=== PATIENT | female | born 1965 | race Caucasian/White ===

== ENCOUNTER 2019-11-03 15:05 | Outpatient (CLI) | payer OTHER ==
--- NOTE | 2019-11-03 16:25 | BD ---
Exam: DEXA Bone Density 11/03/19 HISTORY: Postmenopausal screening for osteoporosis. Lumbar Spine: BMD (g/cm2) T-SCORE Z-SCORE L1 0.852 -1.3 -0.4 L2 0.916 -1.0 -0.1 L3 0.939 -1.3 -0.4 L4 0.933 -1.2 -0.2 L1-L4 0.911 -1.2 -0.3 Femoral Neck: 0.828 -0.2 0.7 Total Femur: 0.928 -1.0 0.5 The ten year fracture risk for major osteoporotic fracture is 8.3% and for hip fracture is 0.2%. Impression: Osteopenia. POS: OFF
--- NOTE | 2019-11-16 15:56 | MMO ---
Bilateral MAMMO Bilat Screen [facility]. CLINICAL HISTORY: Patient is 54 years old and is seen for screening. The patient has the following family history of breast cancer: mother, malignant (generic) and maternal grandmother, malignant (generic). The patient has no personal history of cancer. The patient has a history of bilateral Breast reduction in 2013 - benign, left Stereotatic Biopsy in 2012 - benign and left Ultrasound Guided Core Biopsy in 2006 - benign. VIEWS: The views performed were: bilateral craniocaudal with tomosynthesis and bilateral mediolateral oblique with tomosynthesis. FILMS COMPARED: The present examination has been compared to prior imaging studies performed at [facility] on 02/19/2017, 04/22/2018, 05/06/2018 and 12/07/2018. This study has been interpreted with the assistance of computer-aided detection. MAMMOGRAM FINDINGS: There are scattered fibroglandular densities. There are no suspicious masses, suspicious calcifications, or new areas of architectural distortion. IMPRESSION: THERE IS NO MAMMOGRAPHIC EVIDENCE OF MALIGNANCY. A ROUTINE FOLLOW-UP MAMMOGRAM IN 1 YEAR IS RECOMMENDED. THE RESULTS OF THIS EXAM WERE SENT TO THE PATIENT. ACR BI-RADS Category 1 - Negative MAMMOGRAPHY NOTE: 1. A negative mammogram report should not delay a biopsy if a dominant of clinically suspicious mass is present. 2. Approximately 10% to 15% of breast cancers are not detected by mammography. 3. Adenosis and dense breasts may obscure an underlying neoplasm. Reported by: OLEGARIO LOMAS MD Electonically Signed: [id number]
== END 2019-11-03 15:06 | disposition home or self-care (01) ==
LOC: BICMAMMO 15:05
PROVIDERS: ATTEND Student in an Organized Health Care Education/Training Program
DX: Z13.820 Encounter for screening for osteoporosis (principal); Z78.0 Asymptomatic menopausal state; M85.89 Other specified disorders of bone density and structure, multiple sites; Z91.89 Other specified personal risk factors, not elsewhere classified; Z98.890 Other specified postprocedural states; Z80.3 Family history of malignant neoplasm of breast
CPT/HCPCS: 77063; 77067; 77080

== ENCOUNTER 2020-12-13 08:46 | Outpatient (CLI) | payer OTHER | END 2020-12-13 08:47 | disposition home or self-care (01) | LOC: BICMAMMO 08:46 | PROVIDERS: ATTEND Student in an Organized Health Care Education/Training Program | DX: Z12.31 Encounter for screening mammogram for malignant neoplasm of breast (principal); Z80.3 Family history of malignant neoplasm of breast; Z98.890 Other specified postprocedural states | CPT/HCPCS: 77063; 77067 ==

== ENCOUNTER 2021-01-30 11:35 | Outpatient (CLI) | payer OTHER | END 2021-01-30 11:36 | disposition home or self-care (01) | LOC: MRI 11:35 | PROVIDERS: ATTEND Anesthesiology Pain Medicine | DX: M51.16 Intervertebral disc disorders with radiculopathy, lumbar region (principal) | CPT/HCPCS: 72100; 72148 ==